=== PATIENT | male | born 1995 | race Caucasian/White ===

== ENCOUNTER 2019-12-16 11:44 | Emergency (ER) | payer SELFPAY ==
[2019-12-16 12:05] VITALS: BP 128/82; PULSE 79; RESP 18; TEMP 36.8; O2SAT 97; BMI 25.1
[2019-12-16 13:05] VITALS: BP 125/86; PULSE 77; RESP 18; O2SAT 97
--- NOTE | 2019-12-16 15:11 | W.ED.ALLEREA ---
HPI - Allergic Reaction General: Chief complaint: Allergic Reaction Stated complaint: Heart rate is high Time Seen by Provider: 12/16/19 12:24 Source: patient Mode of arrival: ambulatory Limitations: no limitations History of Present Illness: HPI narrative: Patient is a 24-year-old male who presents to ED today with complaints of a rash/possible allergic reaction. Patient states he was hiking yesterday and while hiking began feeling itchy. He began noticing the rash to his trunk when he returned. Patient has been treating with Benadryl that seemed to alleviate the pruritus and fade the rash. He has no other complaints currently. MD complaint: allergic reaction Onset (ago): hour(s) Exposure: unknown Associated symptoms: Reports no associated symptoms; Deny abdominal pain, nausea or vomiting Treatment prior to arrival: benadryl Previous Allergic Reaction History: none Review of Systems Const: Denies: fever, chills, body aches, fatigue or malaise Eyes: Denies: change in vision or blurry vision ENMT: Denies: throat pain, enlarged tonsils or painful swallowing Card: Denies: chest pain, palpitations or lightheadedness Resp: Denies: shortness of breath, productive cough or chest congestion GI: Denies: abdominal pain, nausea, vomiting or diarrhea Musc: Denies: neck pain or back pain Skin/Breast: Reports: rash and itching Neuro: Denies: headache, numbness in extremities, weakness in extremities or changes in sensation PFSH ED PFSH: Statuses (acute, chronic, etc) shown below reflect problem list status as previously entered and may not be historically accurate Social History Smoking and tobacco status: current every day smoker Physical Exam Const: COMMON NORMALS: no apparent distress, average body habitus, oriented x3, no limitations, healthy appearing, alert and well nourished HENMT: COMMON NORMALS: normocephalic, head/scalp atraumatic, external ears normal, EAC's normal, TM's normal bilaterally, external nose normal, nasal mucous membranes and turbinates normal, moist oral mucous membranes and oropharynx normal HEAD & SCALP: normocephalic and atraumatic NOSE: external nose normal and nasal mucous membranes and turbinates normal EXTERNAL EAR: Yes external ears normal EXTERNAL AUDITORY CANAL: EAC's normal TYMPANIC MEMBRANE: TM's normal bilaterally MOUTH: oral and palatal mucosa normal THROAT: posterior oropharynx normal, tonsils normal and uvula midline Eye: COMMON NORMALS: PERRL, EOMs intact bilaterally, conjunctivae normal and no scleral icterus CONJUNCTIVA: Yes conjunctivae normal PUPIL: Yes PERRL Neck/C-Spine: COMMON NORMALS: no lymphadenopathy and no meningeal signs Resp: COMMON NORMALS: normal respiratory effort and clear to auscultation bilaterally AUSCULTATION: clear to auscultation bilaterally Cardio: COMMON NORMALS: regular rate and regular rhythm RATE: regular rate RHYTHM: regular rhythm Extremity: COMMON NORMALS: normal to inspection Neuro: COMMON NORMALS: oriented x3 SENSORIUM/ORIENTATION: Yes alert MENINGEAL SIGNS: Yes no meningeal signs Skin: RASHES: rashes noted (pt has mildly erythematous papular rash mainly to trunk) Course Vital Signs: Vital signs: Vital Signs Temperature 98.2 F 12/16/19 12:05 Pulse Rate 77 12/16/19 13:05 Respiratory Rate 18 12/16/19 13:05 Blood Pressure 125/86 12/16/19 13:05 Pulse Oximetry 97 12/16/19 13:05 MDM - Allergic Reaction MDM Narrative: Medical decision making narrative: Rash does not appear as urticaria. Distribution is mainly just affecting the trunk. Overall does not appear characteristically like an allergic reaction however rash appears to be responding well to Benadryl and he does have positive exposure based on his history of hiking. Patient reports receiving all of his childhood vaccinations. He was vaccinated against varicella. No meningeal signs. He has no systemic symptoms/involvement. At this point he will be treated for an allergic reaction and recommend he follow-up with PCP in 3 to 5 days for a non-improving or worsening rash. Return to ED precautions given. Discharge Plan Discharge Patient Disposition: Home, Self-Care Clinical Impression: Allergic reaction Qualifiers: Encounter type: initial encounter Qualified Code(s): T78.40XA - Allergy, unspecified, initial encounter Condition: Stable Prescriptions: New prednisone 10 mg tablet 10 mg PO DAILY Qty: 21 RF: 0 Discharge Orders: Discharge Order (Routine); Ordered 12/16/19 Ordered By: Viv Castañeda Referrals: Alex Ching DO [Primary Care Provider] - Discharge Diet: Usual diet Discharge Activity: Increase activity as tolerated Activity Restrictions/Additional Instructions: Follow-up with primary care in 2 to 3 days if rash persists. Return to the emergency department for any other symptoms such as feeling ill, lethargy, confusion, neck pain or headache, or fevers greater than 100.4. Discharge Date/Time: 12/16/19 13:10 Coding Level of Care Code ED [employer] for Marlyn Martinez
== END 2019-12-16 13:10 | disposition home or self-care (01) ==
PROVIDERS: Emergency Provider Physician Assistant; PCP Internal Medicine
DX: T78.40XA Allergy, unspecified, initial encounter (principal); F17.200 Nicotine dependence, unspecified, uncomplicated
CPT/HCPCS: 96372; 96375; 99281; 99283; J2930

== ENCOUNTER 2020-04-27 22:42 | Emergency (ER) | payer SELFPAY ==
[2020-04-27 22:53] VITALS: BP 146/78; PULSE 77; RESP 18; TEMP 36.3; O2SAT 98; BMI 23.6
--- NOTE | 2020-04-27 23:07 | XRR_ITS ---
PROCEDURE INFORMATION: Exam: XR Right Hand Exam date and time: 04/27/2020 11:47 PM Age: 24 years old Clinical indication: Injury or trauma; Injury history: Laceration, cut with knife between 1st and 2nd digit; Initial encounter; Hand; Right; Additional info: Trauma/laceration TECHNIQUE: Imaging protocol: XR Right hand. Views: 3 or more views. COMPARISON: CR Hand 3 views, RIGHT* [id number] 09/04/2016 10:57 PM FINDINGS: Bones/joints: No acute bony injury or malalignment. Soft tissues: Subcutaneous emphysema in the thenar eminence. XR/XR hand RT min 3V* [id number] IMPRESSION: Subcutaneous emphysema in the thenar eminence.
--- NOTE | 2020-04-27 23:08 | W.ED.WOUNDLC ---
HPI - Wound/Laceration General: Chief Complaint: Wound/Laceration Stated Complaint: right hand lac Time Seen by Provider: 04/27/20 23:03 Source: patient Mode of arrival: ambulatory Limitations: no limitations History of Present Illness: HPI narrative: Patient is a 24-year-old male who presents to ED today with complaints of a laceration to his right hand that he sustained with a knife while he was cutting chicken. Patient states he is UTD on his tetanus. Patient does not complain of numbness/tingling/changes in sensation to his hand or digits. Onset (ago): hour(s) Extremity Location: Right: hand Place: home Patient tetanus UTD: Yes Context: accidental Associated symptoms: Reports no associated symptoms Review of Systems Musc: Reports: extremity pain (R hand pain) Skin/Breast: Reports: other (laceration) Neuro: Denies: numbness in extremities or sensory changes COUNTS INCLUDE 234 BEDS AT THE [facility] ED PFSH: Social History Smoking and tobacco status: current every day smoker Physical Exam Const: COMMON NORMALS: no acute distress, average body habitus, patient oriented x3, no limitations, healthy appearing, alert and well nourished Extremity: GENERAL: Yes normal exam except as noted OTHER: 1.25cm laceration to webbing of 1-2 digits of R hand; no bleeding; pt maintains full ROM of digits against resistance; cap refill/pulses normal Neuro: COMMON NORMALS: patient oriented x3, moves all extremities, no focal motor deficits and no sensory deficits noted SENSORIUM/ORIENTATION: Yes alert Skin: OTHER: see extremity assessment Procedures Laceration Laceration 1: Site: hand Side (If applicable): right Size (cm): 1.5 Description: linear Depth: simple, single layer Local Anesthetic: lidocaine 1% and with epi Amount of anesthesia used (mL): 2.0 Pre-repair: wound explored and irrigated extensively Skin layer closed with: nylon Size (cm): 4-0 Number of sutures: 3 Technique: simple, interrupted Course Vital Signs: Vital signs: Vital Signs Temperature 97.4 F L 04/27/20 22:53 Pulse Rate 77 04/27/20 22:53 Respiratory Rate 18 04/27/20 22:53 Blood Pressure 146/78 04/27/20 22:53 Pulse Oximetry 98 04/27/20 22:53 MDM - Wound/Laceration Imaging Data^: R hand XR: My impression: soft tissue injury to webbing of 1-2 digits; no bony involvement, no fbs Discharge Plan Discharge Patient Disposition: Home, Self-Care Clinical Impression: Laceration of right hand Qualifiers: Encounter type: initial encounter Foreign body presence: without foreign body Qualified Code(s): S61.411A - Laceration without foreign body of right hand, initial encounter Condition: Stable Prescriptions: No Action prednisone 10 mg tablet 10 mg PO DAILY Qty: 21 RF: 0 Discharge Orders: Discharge Order (Routine); Ordered 04/27/20 Ordered By: Viv Castañeda Patient Instructions: Suture Care (ED), Laceration (ED) Activity Restrictions/Additional Instructions: Keep wound clean with warm soap and water several times daily. Sutures need to be cut out in 7 days. Monitor for signs of infection such as redness, swelling, drainage, increased pain. Coding Level of Care Code ED Physician President for Marlyn Fwson Exam Expanded Problem Focused
[2020-04-28 00:06] VITALS: BP 142/87; PULSE 98; RESP 16; O2SAT 97
== END 2020-04-28 00:07 | disposition home or self-care (01) ==
PROVIDERS: Emergency Provider Physician Assistant
DX: S61.411A Laceration without foreign body of right hand, initial encounter (principal); W26.0XXA Contact with knife, initial encounter; F17.210 Nicotine dependence, cigarettes, uncomplicated
CPT/HCPCS: 12001; 12345; 73130; 99281; 99283; J2001

== ENCOUNTER 2020-07-24 11:07 | Emergency (ER) | payer SELFPAY ==
[2020-07-24 11:15] VITALS: BP 129/80; PULSE 93; RESP 16; TEMP 36.8; O2SAT 98; BMI 25.1
[2020-07-24 11:19] VITALS: PULSE 86; RESP 16; O2SAT 97
--- NOTE | 2020-07-24 11:28 | XRR_ITS ---
PROCEDURE INFORMATION: Exam: XR Chest, 1 View Exam date and time: 07/24/2020 11:30 AM Age: 24 years old Clinical indication: Shortness of breath and other: Dizzy; Additional info: Dizziness/palpitations TECHNIQUE: Imaging protocol: XR of the chest Views: 1 view. COMPARISON: No relevant prior studies available. FINDINGS: Lungs: Unremarkable. No consolidation. Pleural space: Unremarkable. No pleural effusion. No pneumothorax. Heart/Mediastinum: Unremarkable. No cardiomegaly. Bones/joints: Mild levoscoliosis. XR/XR chest 1V portable [id number] IMPRESSION: No acute findings.
--- NOTE | 2020-07-24 11:29 | ECG_ITS ---
[facility] Test Date: 2020-07-24 Pat Name: Dre Mistry Department: Room: Gender: Male [employer]: : 1995 Requested By: Suze Serna Order Number: [id number] Muhammad MD: Joce Garner M.D. Measurements Intervals [place] Rate: 76 P: 40 WI: 135 QRS: 58 QRSD: 104 T: 40 QT: 354 QTc: 399 Interpretive Statements SINUS RHYTHM No previous ECG available for comparison Electronically Signed On 07-25-2020 19:15:03 CDT by Joce Garner M.D. [id number]
--- NOTE | 2020-07-24 11:30 | ED_ITS ---
HPI - Dizziness General: Chief Complaint: Dizziness Stated Complaint: NAUSEOUS/DIZZY OVERNIGHT Time Seen by Provider: 07/24/20 11:23 Source: patient Mode of arrival: ambulatory Limitations: no limitations History of Present Illness: HPI Narrative: Dre is a 24-year-old male who comes in complaining of dizziness, palpitations feeling out of it . Patient states he was on a hike yesterday and hurt his knee. His girlfriend gave him a hydrocodone tablet which helped and then he went home later that night and drank alcohol. This likely he was smoking marijuana as well. Patient states he woke up at 2 AM feeling like he was having a panic attack. It lasted for quite some time until he is able to calm down. He felt lightheaded, felt like his heart was racing and like he was out of my body . He denied any chest pain, abdominal pain, headache, shortness of breath or other complaint. He denies any fever. He states after getting back to sleep this morning he feels better except for he still feels out of it . Patient denies any similar symptoms in the past. He is unaware of anything that made his symptoms better or worse at the time. The patient came in this morning because he feels like he needs to get checked out for what happened during the night. Associated symptoms: Reports nausea and palpitations; Denies change in hearing, chest pain, chills, diaphoresis, ear discharge, headache(s), malaise, syncope or vomiting Associated neuro symptoms: Deny numbness in extremities Review of Systems Const: Denies: fever(s), chills, body aches, fatigue, malaise or diaphoresis Eyes: Denies: change in vision, blurry vision, photophobia, eye discomfort, eye discharge, eye redness or yellow eyes ENMT: Denies: throat pain, odynophagia, hoarseness, swelling of lips/tongue, ear or mastoid pain, ear discharge, change in hearing or nasal discharge Card: Reports: palpitations; Denies: chest pain, irregular heart rhythm, edema, lightheadedness, syncope, pre-syncope, dyspnea on exertion or orthopnea Resp: Denies: dyspnea, productive cough, non-productive cough, wheezing, hemoptysis or chest congestion GI: Reports: nausea; Denies: abdominal pain, vomiting, hematemesis, coffee ground emesis, heartburn, diarrhea, constipation, GI cramping, hematochezia or melena : Denies: flank pain, dysuria, urinary frequency, urinary urgency or hematuria Musc: Denies: neck pain, back pain, extremity pain, extremity swelling, joint pain, joint swelling, joint redness, joint warmth or joint stiffness Skin/Breast: Denies: rash, pruritus, erythema, skin pain or skin tenderness Neuro: Reports: dizziness; Denies: headache(s), numbness in extremities, weakness in extremities, sensory changes, lack of coordination, difficulty walking, vertigo, Slurred speech present or seizure-like activity Wilmer/Lymph: Denies: easy bruising, easy bleeding, petechiae, purpura or enlarged lymph nodes All/Imm: Denies: urticaria, throat swelling, tongue swelling, facial swelling or acute wheezing PFSH ED PFSH: Medical History (Updated 07/24/20 @ 13:10 by Suze Ambriz) No pertinent past medical history Surgical History (Updated 07/24/20 @ 11:33 by Suze Ambriz) No pertinent past surgical history Family History (Updated 07/24/20 @ 11:34 by Suze Ambriz) Other Diabetes Seizures Social History (Updated 07/24/20 @ 11:34 by Suze Ambriz) Smoking and tobacco status: current every day smoker Alcohol intake: current Substance/Drug Use: current Substance/Drug use type: Marijuana Physical Exam Const: COMMON NORMALS: no acute distress, patient oriented x3, no limitations and alert GENERAL APPEARANCE: cooperative HENMT: COMMON NORMALS: normocephalic, atraumatic, external ears normal, EAC's normal and Normal external nose present HEAD & SCALP: normal to inspection, normocephalic and atraumatic FACE & SINUS: normal facial exam and face symmetric NOSE: Normal external nose present and Normal nares present EXTERNAL EAR: Yes external ears normal EXTERNAL AUDITORY CANAL: EAC's normal MOUTH: Normal oral and palatal mucosa present, lip normal and tongue normal Eye: COMMON NORMALS: Equal, round and reactive pupils present and conjunctivae normal GENERAL EYE: appearance normal, both eyes and all related structures ALIGNMENT: Yes alignment normal PERIORBITAL: periorbital findings normal EYELID: eyelids normal CONJUNCTIVA: Yes conjunctivae normal SCLERA: sclerae normal PUPIL: Yes Equal, round and reactive pupils present Neck/C-Spine: COMMON NORMALS: full ROM, no lymphadenopathy, supple, no meningeal signs and no JVD GENERAL: Yes normal visual inspection and Yes trachea midline Chest: COMMONS NORMALS: normal inspection of the chest and normal palpation of entire chest wall Resp: COMMON NORMALS: normal respiratory effort, No retractions, No use of accessory muscles and clear to auscultation bilaterally EFFORT & INSPECTION: Yes able to speak in complete sentences and Yes symmetric chest movement AUSCULTATION: clear to auscultation bilaterally, no crackles, no rales, no rhonchi and no wheezes Cardio: COMMON NORMALS: no JVD, regular rate, regular rhythm, S1 normal heart sound present and S2 normal heart sound present RATE: regular rate RHYTHM: regular rhythm HEART SOUNDS: S1 normal heart sound present, S2 normal heart sound present, no click, no gallops, no murmurs and no rubs GI: COMMON NORMALS: Soft to palpation and No hepatosplenomegaly present PALPATION: Yes Soft to palpation, No Tenderness to palpation present (GI), No Guarding due to palpation present (GI), No Rigid due to palpation, Yes No hepatosplenomegaly present, No Hernia present, No Palpable mass present and No Pulsatile mass present : COMMON NORMALS: Yes no CVA tenderness BLADDER/KIDNEY EXAM: Yes no CVA tenderness Back/Pelvis: COMMON NORMALS: no CVA tenderness, thoracic and lumbar spine normal to inspection, no thoracic nor lumbar tenderness and thoraco-lumbar ROM normal Extremity: COMMON NORMALS: normal to inspection, full ROM, capillary refill normal, no joint enlargement, no clubbing, cyanosis or edema and no calf te nderness Neuro: COMMON NORMALS: patient oriented x3, CN's II-XII intact bilaterally, moves all extremities, no focal motor deficits and no sensory deficits noted SENSORIUM/ORIENTATION: Yes alert MENINGEAL SIGNS: Yes no meningeal signs SPEECH: speech normal Psych: COMMON NORMALS: mental status grossly normal, Normal thought process present, cooperative, normal affect, speech normal and activity/motor behavior normal SPEECH: Yes normal speech THOUGHT PROCESS: Normal thought process present Skin: COMMON NORMALS: no rashes or lesions noted, turgor normal, no jaundice, no petechiae and no mottling GENERAL SKIN EXAM: no rashes or lesions noted and turgor normal Course Vital Signs: Vital signs: Vital Signs Temperature 98.2 F 09/20/20 11:15 Pulse Rate 77 07/24/20 11:56 Respiratory Rate 16 07/24/20 11:56 Blood Pressure 129/80 07/24/20 11:15 Pulse Oximetry 97 07/24/20 11:56 MDM - Dizziness MDM Narrative: Medical decision making narrative: Dre is a nice 24-year-old male who comes in with complaints of dizziness and not feeling good and feeling off that woke him up in the night. He states he had palpitations and felt lightheaded but he continues to state that he just felt off . All of his symptoms of past but today he still feels lightheaded and off . This time I see no evidence of arrhythmia or sign of Rdtmp-Wiuajtxpk-Ontiz, Brugada syndrome or significant arrhythmia on EKG. His lab work is unremarkable. History suggest that the patient mixed alcohol with hydrocodone last night which he is never done before. Advised him this may be a cause for his symptoms. As he is feeling back to normal now and his laboratory work-up is normal he wants to go home. He states is feeling better and he no longer feels off and is normal. He agrees to follow-up with his regular doctor or return here if his symptoms change or worsen. Lab Data: Labs: Lab Results 07/24/20 07/24/20 07/24/20 Range/Units 11:50 11:50 12:00 WBC 8.2 (4.0-10.0) 10^3/ uL RBC 4.87 (4.1-5.3) 10^6/u L Hgb 15.5 (11.7-16.6) g/dL Hct 46.1 (42.0-52.0) % MCV 94.7 H (80-94) fL MCH 31.8 (28.0-34.0) pg MCHC 33.6 (30.0-36.0) g/dL RDW 11.9 L (12.1-15.1) % Plt Count 258 (130-400) 10^3/c mm MPV 11.1 H (7.4-10.4) fL Neut % (Auto) 79.8 % Lymph % (Auto) 11.8 % [place] % (Auto) 6.7 % Eos % (Auto) 1.1 % Baso % (Auto) 0.2 % Neut # (Auto) 6.50 (1.8-7.7) 10^3/u L Lymph # (Auto) 1.0 (0.8-4.8) 10^3/u L [place] # (Auto) 0.6 (0.2-0.9) 10^3/u L Eos # (Auto) 0.1 (0.0-0.8) 10^3/u L Baso # (Auto) 0.0 (0.0-0.1) 10^3/u L Nucleated RBC % (a uto) 0 % Nucleated RBCs # 0.0 /100WBC Sodium 138 (136-145) mmol/L Potassium 4.0 (3.5-5.1) mmol/L Chloride 102 (98-107) mmol/L Carbon Dioxide 26 (22-29) mmol/L Anion Gap 14.0 (5-19) BUN 8 (6-20) mg/dL Creatinine 1.0 (0.7-1.2) mg/dL GFR Calculation 93.4 (90-130) mL/min Glucose 104 (65-115) mg/dL Calculated Osmolal ity 285 (285-295) mOsm/k g Calcium 9.4 (8.5-10.5) mg/dL Magnesium 2.0 (1.7-2.3) mg/dL Total Bilirubin 0.3 (0.15-1.2) mg/dL AST 19 (0-40) U/L ALT 16 (0-41) U/L Alkaline Phosphata se 120 (40-130) IU/L Creatine Kinase 106 (39-308) U/L Total Protein 7.2 (6.6-8.7) g/dL Albumin 4.7 (3.5-5.2) g/dL Globulin 2.5 (1.3-4.6) g/dL TSH 1.15 (0.27-4.20) uIU/ mL Urine Color Yellow (Yellow) Urine Appearance Clear (CLEAR) Urine pH 7 (5-7) Ur Specific Gravit y 1.005 (1.005-1.030) Urine Protein Neg (Negative) Urine Glucose (UA) Norm (Normal) Urine Ketones Negative (Negative) Urine Blood Neg (Negative) Urine Nitrate Negative (Negative) Urine Bilirubin Neg (Negative) Urine Urobilinogen Norm (Negative) mg/dL Ur Leukocyte Jolie ase Negative (Negative) Urine Opiates Scre en (Negative) ng/mL Ur Barbiturates Sc reen (Negative) ng/mL Ur Phencyclidine S crn (Negative) ng/mL Ur Amphetamines Sc reen (Negative) ng/mL U Benzodiazepines Scrn (Negative) ng/mL Urine Cocaine Scre en (Negative) ng/mL U Marijuana (THC) Screen (Negative) ng/mL Ethyl Alcohol < 10 (0-10) mg/dL 07/24/20 Range/Units 12:00 WBC (4.0-10.0) 10^3/ uL RBC (4.1-5.3) 10^6/u L Hgb (11.7-16.6) g/dL Hct (42.0-52.0) % MCV (80-94) fL MCH (28.0-34.0) pg MCHC (30.0-36.0) g/dL RDW (12.1-15.1) % Plt Count (130-400) 10^3/c mm MPV (7.4-10.4) fL Neut % (Auto) % Lymph % (Auto) % [place] % (Auto) % Eos % (Auto) % Baso % (Auto) % Neut # (Auto) (1.8-7.7) 10^3/u L Lymph # (Auto) (0.8-4.8) 10^3/u L [place] # (Auto) (0.2-0.9) 10^3/u L Eos # (Auto) (0.0-0.8) 10^3/u L Baso # (Auto) (0.0-0.1) 10^3/u L Nucleated RBC % (a uto) % Nucleated RBCs # /100WBC Sodium (136-145) mmol/L Potassium (3.5-5.1) mmol/L Chloride (98-107) mmol/L Carbon Dioxide (22-29) mmol/L Anion Gap (5-19) BUN (6-20) mg/dL Creatinine (0.7-1.2) mg/dL GFR Calculation (90-130) mL/min Glucose (65-115) mg/dL Calculated Osmolal ity (285-295) mOsm/k g Calcium (8.5-10.5) mg/dL Magnesium (1.7-2.3) mg/dL Total Bilirubin (0.15-1.2) mg/dL AST (0-40) U/L ALT (0-41) U/L Alkaline Phosphata se (40-130) IU/L Creatine Kinase (39-308) U/L Total Protein (6.6-8.7) g/dL Albumin (3.5-5.2) g/dL Globulin (1.3-4.6) g/dL TSH (0.27-4.20) uIU/ mL Urine Color (Yellow) Urine Appearance (CLEAR) Urine pH (5-7) Ur Specific Gravit y (1.005-1.030) Urine Protein (Negative) Urine Glucose (UA) (Normal) Urine Ketones (Negative) Urine Blood (Negative) Urine Nitrate (Negative) Urine Bilirubin (Negative) Urine Urobilinogen (Negative) mg/dL Ur Leukocyte Jolie ase (Negative) Urine Opiates Scre en Positive H (Negative) ng/mL Ur Barbiturates Sc reen Negative (Negative) ng/mL Ur Phencyclidine S crn Negative (Negative) ng/mL Ur Amphetamines Sc reen Negative (Negative) ng/mL U Benzodiazepines Scrn Negative (Negative) ng/mL Urine Cocaine Scre en Negative (Negative) ng/mL U Marijuana (THC) Screen Positive H (Negative) ng/mL Ethyl Alcohol (0-10) mg/dL EKG Data^: EKG 1: Attestation: I personally reviewed and interpreted this EKG as follows: EKG interpretation date: 07/24/20 EKG interpretation time: 12:00 Interpretation: Normal sinus rhythm at 76 beats a minute, normal axis, no blocks, normal intervals, no acute ST-T wave changes. Discharge Plan Discharge Patient Disposition: Home Clinical Impression: Dizziness Condition: Stable Prescriptions: No Action No Known Home Medications RF: 0 Discharge Orders: Discharge Order (Routine); Ordered 07/24/20 Ordered By: Suze Ambriz Referrals: Елена Shin DO [Physician] - 1-3 days Discharge Diet: Advance as tolerated Discharge Activity: Increase activity as tolerated Patient Instructions: Dizziness (ED) Activity Restrictions/Additional Instructions: Please return to the ER immediately for any of the signs or symptoms listed on your discharge instruction sheets, worsening/changing of your symptoms, you are not getting better as quickly as expected, or for ANY other cause or concerns. If your symptoms return or you develop any new symptoms please return to the ER immediately for recheck. Do not mix opiate medications with alcohol again. Be certain to follow-up with your doctor or establish with Dr. Shin for recheck for need of possible further evaluation and care. Coding Level of Care Code ED [employer] Systems Analyst for Chg Fwd Exam Comprehensive
[2020-07-24 11:56] VITALS: PULSE 77; RESP 16; O2SAT 97
[2020-07-24] MEDS: ondansetron 2 mg/ML SDV 2 mL 4 MG IVP (11:58)
[2020-07-24] MEDS: sodium chloride 0.9% 1,000 ML 999 ML IV (11:58)
[2020-07-24 12:12] LABS: Basophils % 0.2 %; Eosinophils # 0.1 10^3/uL (0.0-0.8); Eosinophils % 1.1 %; Hematocrit 46.1 % (42.0-52.0); Hemoglobin 15.5 g/dL (11.7-16.6); Lymphocytes % 11.8 %; Mean Corpuscular HGB Conc 33.6 g/dL (30.0-36.0); Mean Corpuscular Hemoglobin 31.8 pg (28.0-34.0); Mean Corpuscular Volume 94.7 fL (80-94); Mean Platelet Volume 11.1 fL (7.4-10.4); Monocytes # 0.6 10^3/uL (0.2-0.9); Monocytes % 6.7 %; Neutrophils % 79.8 %; Nucleated Red Blood Cells % 0 %; Platelet Count 258 10^3/cmm (130-400); Red Blood Count 4.87 10^6/uL (4.1-5.3); Red Cell Distribution Width 11.9 % (12.1-15.1); White Blood Count 8.2 10^3/uL (4.0-10.0)
[2020-07-24 12:27] LABS: Add Urine Microscopic? NO
[2020-07-24 12:36] LABS: Alanine Aminotransferase 16 U/L (0-41); Albumin Level 4.7 g/dL (3.5-5.2); Alkaline Phosphatase 120 IU/L (40-130); Aspartate Amino Transferase 19 U/L (0-40); Blood Urea Nitrogen 8 mg/dL (6-20); Calcium 9.4 mg/dL (8.5-10.5); Carbon Dioxide 26 mmol/L (22-29); Chloride 102 mmol/L (98-107); Creatine Phosphokinase 106 U/L (39-308); Globulin 2.5 g/dL (1.3-4.6); Glomerular Filtration Rate 93.4 mL/min (90-130); Glucose 104 mg/dL (65-115); Osmolality Calculated 285 mOsm/kg (285-295); Sodium 138 mmol/L (136-145); Thyroid Stimulating Hormone 1.15 uIU/mL (0.27-4.20); Total Bilirubin 0.3 mg/dL (0.15-1.2); Total Protein 7.2 g/dL (6.6-8.7)
[2020-07-24 12:38] LABS: Amphetamines Screen Urine Negative (Negative); Barbiturates Screen Urine Negative (Negative); Benzodiazepines Screen Urine Negative (Negative); Bilirubin Urine Neg (Negative); Blood Urine Neg (Negative); Cocaine Screen Urine Negative (Negative); Glucose Urine UA Norm (Normal); Ketones Urine Negative (Negative); Leukocyte Esterase Urine Negative (Negative); Nitrate Urine Negative (Negative); Opiate Screen Urine Positive (Negative); PCP Screen Urine Negative (Negative); Protein Urine Neg (Negative); Specific Gravity, Urine 1.005 (1.005-1.030); THC Screen Urine Positive (Negative); Urine Appearance Clear (CLEAR); Urine Color Yellow (Yellow); Urobilinogen Urine Norm (Negative); pH Urine 7 (5-7)
[2020-07-24 12:56] LABS: Alcohol Level < 10 mg/dL (0-10)
[2020-07-24 13:00] VITALS: BP 131/78; PULSE 71; RESP 16; O2SAT 96
== END 2020-07-24 13:21 | disposition home or self-care (01) ==
PROVIDERS: Emergency Provider Emergency Medicine
DX: R42 Dizziness and giddiness (principal); F17.210 Nicotine dependence, cigarettes, uncomplicated
CPT/HCPCS: 12345; 71045; 80053; 80306; 80307; 81003; 82550; 83735; 84443; 85025; 93005; 96360; 96375; 99284; J2405; J7030

== ENCOUNTER → 2020-08-07 16:43 | Outpatient (BNVA) | payer OTHER, SELFPAY | PROVIDERS: Visit Provider Nurse Practitioner Family | DX: Z11.59 Encounter for screening for other viral diseases (principal) | CPT/HCPCS: 87635 ==

== ENCOUNTER 2020-12-22 21:44 | Emergency (ER) | payer SELFPAY ==
[2020-12-22] VITALS (12 sets, daily range): BP systolic 126–163; BP diastolic 69–110; PULSE 91–136; RESP 18–22; TEMP 36.6; O2SAT 93–98; BMI 24.7
--- NOTE | 2020-12-22 22:07 | ED_ITS ---
HPI - Allergic Reaction General: Chief complaint: Allergic Reaction Stated complaint: allergic reaction Time Seen by Provider: 12/22/20 22:02 History of Present Illness: HPI narrative: Patient is a 25-year-old male who says 30 minutes ago he started noticing swelling of his tongue and lips. He chewed up 2 Benadryl from the store and it did not help so he came right to the ER. He says he is allergic to poison jose juan and tramadol but had no exposure to either of those tonight. No known exposures to significant allergens this evening. MD complaint: allergic reaction and facial swelling Onset (ago): minute(s) (30) Associated symptoms: Reports facial swelling; Deny abdominal pain or dizziness Review of Systems General: Reports: 10 or more systems reviewed and unremarkable except in HPI and below Const: Denies: fatigue Eyes: Denies: change in vision, blurry vision or eye redness ENMT: Denies: throat pain, swelling of lips/tongue, ear or mastoid pain or nasal congestion Card: Denies: chest pain, palpitations, irregular heart rhythm, edema, dyspnea on exertion or orthopnea Resp: Denies: dyspnea, productive cough or non-productive cough GI: Denies: abdominal pain, diarrhea or GI cramping : Denies: flank pain, urinary frequency or urinary urgency Musc: Denies: neck pain, back pain, extremity pain, joint pain, joint redness, limited range of motion or muscle weakness Skin/Breast: Denies: rash, pruritus, erythema, skin pain or skin tenderness Neuro: Denies: headache(s), numbness in extremities, weakness in extremities, sensory changes, difficulty walking, dizziness, confusion or Slurred speech present Psych: Denies: anxiety or depression Endo: Denies: polyuria All/Imm: Reports: facial swelling [facility] ED PFSH: Medical History (Updated 12/23/20 @ 00:19 by Cali Gallardo MD) No pertinent past medical history Surgical History (Updated 07/24/20 @ 11:33 by Suze Ambriz) No pertinent past surgical history Family History (Updated 07/24/20 @ 11:34 by Suze Ambriz) Other Diabetes Seizures Social History (Updated 08/07/20 @ 15:44 by Dary Olivera NP) Smoking and tobacco status: current every day smoker e-cigarettes E-Cigarette Details: vaporizer device Alcohol intake: current Physical Exam Const: COMMON NORMALS: no acute distress, average body habitus, patient oriented x3, no limitations, healthy appearing, alert and well nourished GENERAL APPEARANCE: cooperative, comfortable, well kempt and well developed ORIENTATION/CONSCIOUSNESS: Yes awake, Yes oriented to person, Yes oriented to place and Yes oriented to time HENMT: COMMON NORMALS: normocephalic, external ears normal and Normal external nose present HEAD & SCALP: normal to inspection and normocephalic NOSE: Normal external nose present EXTERNAL EAR: Yes external ears normal OTHER: Angioedema to the lips and tongue with slurred speech. After Benadryl, epi, administration he quickly improved and was able to speak clearly. He took a nap and requested to leave AMA. Eye: COMMON NORMALS: Equal, round and reactive pupils present and EOMs intact bilaterally GENERAL EYE: appearance normal, both eyes and all related structures PUPIL: Yes Equal, round and reactive pupils present Neck/C-Spine: COMMON NORMALS: full ROM, no lymphadenopathy, no meningeal signs and no JVD GENERAL: Yes normal visual inspection Lymph: LYMPHATIC: no lymphadenopathy noted Chest: COMMONS NORMALS: normal inspection of the chest and normal palpation of entire chest wall Resp: COMMON NORMALS: normal respiratory effort, No retractions, No use of accessory muscles, clear to auscultation bilaterally and percussion normal EFFORT & INSPECTION: Yes able to speak in complete sentences AUSCULTATION: clear to auscultation bilaterally PERCUSSION: percussion normal Cardio: COMMON NORMALS: no JVD, regular rate, regular rhythm, S1 normal heart sound present, S2 normal heart sound present and Peripheral pulses 2+ throughout RATE: regular rate RHYTHM: regular rhythm HEART SOUNDS: S1 normal heart sound present and S2 normal heart sound present PERIPHERAL PULSES: Peripheral pulses 2+ throughout GI: COMMON NORMALS: Normal to inspection, nondistended, normoactive bowel sounds present, Soft to palpation, non-tender and no masses INSPECTION: Yes normal to inspection PALPATION: Yes Soft to palpation : COMMON NORMALS: Yes no CVA tenderness BLADDER/KIDNEY EXAM: Yes no CVA tenderness Back/Pelvis: COMMON NORMALS: no CVA tenderness, thoracic and lumbar spine normal to inspection, no thoracic nor lumbar tenderness and thoraco-lumbar ROM normal Extremity: COMMON NORMALS: normal to inspection, full ROM, capillary refill normal, no joint enlargement and no pedal edema GENERAL: Yes normal exam except as noted Neuro: COMMON NORMALS: patient oriented x3, CN's II-XII intact bilaterally, moves all extremities, no focal motor deficits, no sensory deficits noted and gait normal SENSORIUM/ORIENTATION: Yes alert, Yes oriented to person, Yes oriented to place and Yes oriented to time MENINGEAL SIGNS: Yes no meningeal signs Psych: COMMON NORMALS: mental status grossly normal, Normal thought process present, cooperative, normal affect and speech normal APPEARANCE: Yes well kempt ATTITUDE: Yes calm SPEECH: Yes normal speech THOUGHT PROCESS: Normal thought process present Skin: COMMON NORMALS: no rashes or lesions noted GENERAL SKIN EXAM: no rashes or lesions noted Course Vital Signs: Vital signs: Vital Signs Temperature 97.9 F 12/22/20 21:55 Pulse Rate 95 12/23/20 00:30 Respiratory Rate 18 12/23/20 00:30 Blood Pressure 131/74 12/23/20 00:00 Pulse Oximetry 96 12/23/20 00:30 MDM - Allergic Reaction MDM Narrative: Medical decision making narrative: The patient came in with an acute angioedema allergic reaction to unknown trigger. He was given IV dexamethasone, Benadryl, famotidine. Also epinephrine intramuscular. His symptoms quickly improved and he took a nap. He requested to leave and I told him it was AGAINST MEDICAL ADVICE because angioedema is recommended to stay overnight for further monitoring. I told him his lips and tongue could swell back up and he could . He is alert and oriented x4 and understands those consequences and risks and signed AGAINST MEDICAL ADVICE and left on his own. I wrote him prescriptions for EpiPen, Medrol Dosepak, and Benadryl and recommended he take the EpiPen everywhere with him and use it with any lip and tongue swelling at all. Lab Data: Labs: Lab Results 12/22/20 12/22/20 Range/Units 22:09 22:09 WBC 9.6 (4.0-10.0) 10^3/ uL RBC 5.45 H (4.1-5.3) 10^6/u L Hgb 17.0 H (11.7-16.6) g/dL Hct 49.2 (42.0-52.0) % MCV 90.3 (80-94) fL MCH 31.2 (28.0-34.0) pg MCHC 34.6 (30.0-36.0) g/dL RDW 11.9 L (12.1-15.1) % Plt Count 332 (130-400) 10^3/c mm MPV 11.5 H (7.4-10.4) fL Neut % (Auto) 59.7 % Lymph % (Auto) 29.5 % Crawford % (Auto) 8.3 % Eos % (Auto) 1.5 % Baso % (Auto) 0.6 % Neut # (Auto) 5.73 (1.8-7.7) 10^3/u L Lymph # (Auto) 2.8 (0.8-4.8) 10^3/u L Crawford # (Auto) 0.8 (0.2-0.9) 10^3/u L Eos # (Auto) 0.1 (0.0-0.8) 10^3/u L Baso # (Auto) 0.1 (0.0-0.1) 10^3/u L Nucleated RBC % (a uto) 0 % Nucleated RBCs # 0.0 /100WBC Sodium 137 (136-145) mmol/L Potassium 3.8 (3.5-5.1) mmol/L Chloride 99 (98-107) mmol/L Carbon Dioxide 23 (22-29) mmol/L Anion Gap 18.8 (5-19) BUN 8 (6-20) mg/dL Creatinine 0.9 (0.7-1.2) mg/dL GFR Calculation 104.6 (90-130) mL/min Glucose 133 H (65-115) mg/dL Calculated Osmolal ity 284 L (285-295) mOsm/k g Calcium 9.5 (8.5-10.5) mg/dL Total Bilirubin 0.2 (0.15-1.2) mg/dL AST 19 (0-40) U/L ALT 19 (0-41) U/L Alkaline Phosphata se 139 H (40-130) IU/L Total Protein 7.4 (6.6-8.7) g/dL Albumin 4.8 (3.5-5.2) g/dL Globulin 2.6 (1.3-4.6) g/dL Discharge Plan Discharge Patient Disposition: Left Against Medical Advice Clinical Impression: Angioedema Condition: Stable Prescriptions: New Medrol (Jose Carlos) 4 mg tablets,dose pack See Rx Instructions .ROUTE .COMPLEX Qty: 21 RF: 0 EpiPen 2-Jose Carlos 0.3 mg/0.3 mL auto-injector 0.3 mg IM Q10M PRN (Reason: allergic reaction) Qty: 2 RF: 0 Benadryl 25 mg capsule 25 mg PO Q4H PRN (Reason: allergic reaction) Qty: 30 RF: 0 No Action No Known Home Medications RF: 0 Discharge Diet: Advance as tolerated Discharge Activity: Limit activity as instructed Patient Instructions: Angioedema (ED) Activity Restrictions/Additional Instructions: You have had an allergic reaction to a unknown trigger. A severe allergic reac tion on his angioedema. I have recommended you stay overnight for admission. You are choosing to leave AGAINST MEDICAL ADVICE. This is because the swelling can return and you can become short of breath and from it. Please return to the ER at any time for further evaluation. Take the steroids and Benadryl as directed. EpiPen please inject yourself if there is any swelling of your lips that returns. Follow-up with your primary care physician tomorrow if possible to monitor improvement of your symptoms. Please carry the EpiPen with you everywhere you go. Coding Level of Care Code ED Cardiovascular Radiologic Technologist for Marlyn Martinez Exam Comprehensive
[2020-12-22] MEDS: diphenhydrAMINE 50 mg/mL SDV 1mL IVP (22:11)
[2020-12-22] MEDS: dexamethasone 4 mg/mL INJ 10 MG IVP (22:11)
[2020-12-22] MEDS: EPINEPHrine 1 mg/mL INJ 0.3 MG IM (22:12)
[2020-12-22] MEDS: sodium chloride 0.9% 1,000 ML 999 ML IV (22:16)
[2020-12-22] MEDS: famotidine 20 mg/2 mL INJ 40 MG IVP (22:16)
[2020-12-22 23:33] LABS: Basophils # 0.1 10^3/uL (0.0-0.1); Basophils % 0.6 %; Eosinophils # 0.1 10^3/uL (0.0-0.8); Eosinophils % 1.5 %; Hematocrit 49.2 % (42.0-52.0); Lymphocytes # 2.8 10^3/uL (0.8-4.8); Lymphocytes % 29.5 %; Mean Corpuscular HGB Conc 34.6 g/dL (30.0-36.0); Mean Corpuscular Hemoglobin 31.2 pg (28.0-34.0); Mean Corpuscular Volume 90.3 fL (80-94); Mean Platelet Volume 11.5 fL (7.4-10.4); Monocytes # 0.8 10^3/uL (0.2-0.9); Monocytes % 8.3 %; Neutrophils # 5.73 10^3/uL (1.8-7.7); Neutrophils % 59.7 %; Nucleated Red Blood Cells % 0 %; Platelet Count 332 10^3/cmm (130-400); Red Blood Count 5.45 10^6/uL (4.1-5.3); Red Cell Distribution Width 11.9 % (12.1-15.1); White Blood Count 9.6 10^3/uL (4.0-10.0)
[2020-12-22 23:47] LABS: Alanine Aminotransferase 19 U/L (0-41); Albumin Level 4.8 g/dL (3.5-5.2); Alkaline Phosphatase 139 IU/L (40-130); Anion Gap 18.8 (5-19); Aspartate Amino Transferase 19 U/L (0-40); Blood Urea Nitrogen 8 mg/dL (6-20); Calcium 9.5 mg/dL (8.5-10.5); Carbon Dioxide 23 mmol/L (22-29); Chloride 99 mmol/L (98-107); Globulin 2.6 g/dL (1.3-4.6); Glomerular Filtration Rate 104.6 mL/min (90-130); Glucose 133 mg/dL (65-115); Osmolality Calculated 284 mOsm/kg (285-295); Potassium 3.8 mmol/L (3.5-5.1); Sodium 137 mmol/L (136-145); Total Bilirubin 0.2 mg/dL (0.15-1.2); Total Protein 7.4 g/dL (6.6-8.7)
[2020-12-23] VITALS: BP 131/74; PULSE 92; O2SAT 94
[2020-12-23 00:30] VITALS: PULSE 95; RESP 18; O2SAT 96
== END 2020-12-23 00:33 | disposition left against medical advice (07) ==
PROVIDERS: Emergency Provider Family Medicine
DX: T78.3XXA Angioneurotic edema, initial encounter (principal); Z53.21 Procedure and treatment not carried out due to patient leaving prior to being seen by health care provider; F17.290 Nicotine dependence, other tobacco product, uncomplicated
CPT/HCPCS: 80053; 85025; 96361; 96372; 96374; 96375; 99284; J0171; J1100; J1200; J3490; J7030

== ENCOUNTER 2022-01-02 04:22 | Emergency (ER) | payer SELFPAY ==
[2022-01-02 04:28] VITALS: BP 153/99; PULSE 122; RESP 18; TEMP 36.6; O2SAT 100; BMI 27.9
--- NOTE | 2022-01-02 04:28 | W.ED.ALLEREA ---
HPI - Allergic Reaction General: Chief complaint: Allergic Reaction Stated complaint: Allergic Reaction Time Seen by Provider: 01/02/22 04:23 Source: patient Mode of arrival: ambulatory Limitations: no limitations History of Present Illness: HPI narrative: 26-year-old male who states that he started having an urticarial rash to his lower abdomen and legs roughly 2 hours ago he states he drank He believes he may have been allergic to it. He states that his rash is very pruritic in nature denies any throat swelling denies any shortness of breath denies any worsening improving factors he did take Benadryl at home but states that he is still has urticaria and is quite pruritic. Associated symptoms: Deny abdominal pain, nausea or vomiting Review of Systems Const: Denies: fever(s), chills, body aches or change in appetite Eyes: Denies: blurry vision or eye discomfort ENMT: Denies: throat pain or dental pain Card: Denies: chest pain Resp: Denies: dyspnea GI: Denies: abdominal pain, nausea, vomiting or diarrhea : Denies: dysuria Musc: Denies: neck pain or back pain Skin/Breast: Reports: rash Neuro: Denies: headache(s) Psych: Denies: depression Wilmer/Lymph: Denies: easy bruising All/Imm: Denies: urticaria PFSH ED PFSH: Medical History No pertinent past medical history Surgical History No pertinent past surgical history Family History Other Diabetes Seizures Social History Smoking and tobacco status: current every day smoker e-cigarettes E-Cigarette Details: vaporizer device Alcohol intake: current Physical Exam Const: COMMON NORMALS: no acute distress, patient oriented x3 and healthy appearing HENMT: COMMON NORMALS: normocephalic and atraumatic HEAD & SCALP: normocephalic and atraumatic Eye: COMMON NORMALS: Equal, round and reactive pupils present and EOMs intact bilaterally PUPIL: Yes Equal, round and reactive pupils present Neck/C-Spine: COMMON NORMALS: full ROM and supple Chest: COMMONS NORMALS: normal inspection of the chest and normal palpation of entire chest wall Resp: COMMON NORMALS: normal respiratory effort, No retractions, No use of accessory muscles and clear to auscultation bilaterally AUSCULTATION: clear to auscultation bilaterally Cardio: COMMON NORMALS: regular rate, regular rhythm and No murmurs present (Cardio) RATE: regular rate RHYTHM: regular rhythm GI: COMMON NORMALS: Normal to inspection, nondistended, normoactive bowel sounds present, Soft to palpation, non-tender and no masses PALPATION: Yes Soft to palpation Extremity: COMMON NORMALS: normal to inspection and full ROM Neuro: COMMON NORMALS: patient oriented x3, moves all extremities and no focal motor deficits Psych: COMMON NORMALS: mental status grossly normal, Normal thought process present and cooperative THOUGHT PROCESS: Normal thought process present Skin: COMMON NORMALS: no wounds NARRATIVE SKIN EXAM: urticarial rash to lower abdomen and legs Course Vital Signs: Vital signs: Vital Signs Temperature 98 F 01/02/22 04:28 Pulse Rate 115 H 01/02/22 04:36 Respiratory Rate 21 H 01/02/22 04:36 Blood Pressure 153/99 01/02/22 04:36 Pulse Oximetry 100 01/02/22 04:36 MDM - Allergic Reaction Medical Decision Making Patient presents here with urticaria likely from allergic reaction he feels much improved here after IV meds. We will place him on 5 days of prednisone. He has no airway involvement he is stable for discharge is to follow-up PCP and return if worsening. Discharge Plan Discharge Patient Disposition: Home Clinical Impression: Allergic reaction, Urticaria Condition: Stable Prescriptions: New prednisone 50 mg tablet 50 mg PO DAILY Qty: 5 0RF No Action Medrol (Jose Carlos) 4 mg tablets,dose pack See Rx Instructions .ROUTE .COMPLEX Qty: 21 0RF Rx Instructions: orally per package directions EpiPen 2-Jose Carlos 0.3 mg/0.3 mL auto-injector 0.3 mg IM Q10M PRN (Reason: allergic reaction) Qty: 2 0RF Rx Instructions: for 2 doses Benadryl 25 mg capsule 25 mg PO Q4H PRN (Reason: allergic reaction) Qty: 30 0RF Discharge Orders: Discharge ED (Routine); Ordered 01/02/22 Ordered By: Shalom Rojas Discharge Diet: Advance as tolerated Discharge Activity: Resume usual activity Patient Instructions: Urticaria (ED) Coding Level of Care Code ED Board Certified Family Physician for Kristelg Fwd Exam Comprehensive
[2022-01-02 04:36] VITALS: BP 153/99; PULSE 115; RESP 21; O2SAT 100
[2022-01-02] MEDS: famotidine 20 mg/2 mL INJ 40 MG IVP (04:37)
[2022-01-02] MEDS: diphenhydrAMINE 50 mg/mL SDV 1mL IVP (04:37)
[2022-01-02 05:09] VITALS: BP 152/99; PULSE 110; RESP 18; O2SAT 99
== END 2022-01-02 05:12 | disposition home or self-care (01) ==
PROVIDERS: Emergency Provider Emergency Medicine
DX: L50.9 Urticaria, unspecified (principal); T78.40XA Allergy, unspecified, initial encounter; F17.290 Nicotine dependence, other tobacco product, uncomplicated
CPT/HCPCS: 96374; 96375; 99283; J1200; J2930; J3490

== ENCOUNTER 2023-01-07 22:44 | Inpatient (IN) | payer SELFPAY ==
[2023-01-07 22:47] VITALS: BP 144/99; PULSE 118; RESP 16; O2SAT 97; BMI 26.1
--- NOTE | 2023-01-07 22:50 | ECG_ITS ---
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 Measurements Intervals [place] Rate: 78 P: 53 [place]: 121 QRS: 65 QRSD: 93 T: 50 QT: 330 QTc: 376 Interpretive Statements SINUS RHYTHM WITH SINUS ARRHYTHMIA Compared to ECG 07/24/2020 11:49:39 No significant changes Electronically Signed On 01-08-2023 18:16:18 CLINIC OFFICE ASSISTANT by Valente Pride M.D. [id number] f
--- NOTE | 2023-01-07 23:08 | ED.C_ITS ---
HPI - Psych General: Chief Complaint: Psychiatric Symptoms Stated Complaint: SI Time Seen by Provider: 01/07/23 22:49 Source: patient, EMS and police Mode of arrival: EMS Limitations: no limitations History of Present Illness: 27-year-old male is here with police and EMS his anniversary of his mother is deaf he is stated he had been drinking and taking Xanax and also told the media marketing manager and his brother that he just wanted to end it all he did have a gun in his positions when media marketing manager arrived patient is tearful here and depressed he denies any suicidality me but he had made suicidal statements to multiple people. Associated symptoms: Reports depression and suicidal ideation Review of Systems Const: Denies: fever(s), chills, body aches or change in appetite Eyes: Denies: blurry vision or eye discomfort ENMT: Denies: throat pain or dental pain Card: Denies: chest pain Resp: Denies: dyspnea GI: Denies: abdominal pain, nausea, vomiting or diarrhea : Denies: dysuria Musc: Denies: neck pain or back pain Skin/Breast: Denies: rash Neuro: Denies: headache(s) Psych: Reports: depression and suicidal ideation Wilmer/Lymph: Denies: easy bruising All/Imm: Denies: urticaria PFSH ED PFSH: Medical History No pertinent past medical history Surgical History No pertinent past surgical history Family History Other Diabetes Seizures Social History Smoking and tobacco status: current every day smoker e-cigarettes E-Cigarette Details: vaporizer device Alcohol intake: current Physical Exam Const: COMMON NORMALS: no acute distress, patient oriented x3 and healthy appearing HENMT: COMMON NORMALS: normocephalic and atraumatic HEAD & SCALP: normoce phalic and atraumatic Eye: COMMON NORMALS: Equal, round and reactive pupils present and EOMs intact bilaterally PUPIL: Yes Equal, round and reactive pupils present Neck/C-Spine: COMMON NORMALS: full ROM and supple Chest: COMMONS NORMALS: normal inspection of the chest and normal palpation of entire chest wall Resp: COMMON NORMALS: normal respiratory effort, No retractions, No use of accessory muscles and clear to auscultation bilaterally AUSCULTATION: clear to auscultation bilaterally Cardio: COMMON NORMALS: regular rate, regular rhythm and No murmurs present (Cardio) RATE: regular rate RHYTHM: regular rhythm GI: COMMON NORMALS: Normal to inspection, nondistended, normoactive bowel sounds present, Soft to palpation, non-tender and no masses PALPATION: Yes Soft to palpation Extremity: COMMON NORMALS: normal to inspection and full ROM Neuro: COMMON NORMALS: patient oriented x3, moves all extremities and no focal motor deficits Psych: COMMON NORMALS: mental status grossly normal, Normal thought process present and cooperative MOOD & AFFECT: Yes sad and Yes tearful THOUGHT PROCESS: Normal thought process present Skin: COMMON NORMALS: no rashes or lesions noted and no wounds GENERAL SKIN EXAM: no rashes or lesions noted Course Vital Signs: Vital signs: Vital Signs Pulse Rate 78 01/08/23 00:36 Respiratory Rate 20 H 01/08/23 00:36 Blood Pressure 144/99 01/07/23 22:47 Pulse Oximetry 97 01/07/23 22:47 Oxygen Delivery Me thod 01/07/23 22:47 MDM - Psych Medical Decision Making Patient presents here with suicidal ideations he is placed on a 96-hour hold I spoke to psychiatrist Dr. Brown and will admit here Lab Data 01/07/23 23:41 01/07/23 23:41 Laboratory Results WBC 7.3 10^3/uL (4.0-10.0) 01/07/23 23:41 RBC 5.20 10^6/uL (4.1-5.3) 01/07/23 23:41 Hgb 17.1 g/dL (11.7-16.6) H 01/07/23 23:41 Hct 50.6 % (42.0-52.0) 01/07/23 23:41 MCV 97.3 fl (80-94) H 01/07/23 23:41 MCH 32.9 pg (28.0-34.0) 01/07/23 23:41 MCHC 33.8 g/dL (30.0-36.0) 01/07/23 23:41 RDW 12.1 % (12.1-15.1) 01/07/23 23:41 Plt Count 319 10^3/cmm (130-400) 01/07/23 23:41 MPV 11.3 fL (7.4-10.4) H 01/07/23 23:41 Neut % (Auto) 56.7 % 01/07/23 23:41 Lymph % (Auto) 29.9 % 01/07/23 23:41 Nance % (Auto) 7.9 % 01/07/23 23:41 Eos % (Auto) 4.4 % 01/07/23 23:41 Baso % (Auto) 0.8 % 01/07/23 23:41 Neut # (Auto) 4.12 10^3/uL (1.8-7.7) 01/07/23 23:41 Lymph # (Auto) 2.2 10^3/uL (0.8-4.8) 01/07/23 23:41 Nance # (Auto) 0.6 10^3/uL (0.2-0.9) 01/07/23 23:41 Eos # (Auto) 0.3 10^3/uL (0.0-0.8) 01/07/23 23:41 Baso # (Auto) 0.1 10^3/uL (0.0-0.1) 01/07/23 23:41 Nucleated RBC % (auto) 0 % 01/07/23 23:41 Nucleated RBCs # 0.0 /100WBC 01/07/23 23:41 Sodium 143 mmol/L (136-145) 01/07/23 23:41 Potassium 3.9 mmol/L (3.5-5.1) 01/07/23 23:41 Chloride 102 mmol/L (98-107) 01/07/23 23:41 Carbon Dioxide 28 mmol/L (22-29) 01/07/23 23:41 Anion Gap 16.9 (5-19) 01/07/23 23:41 BUN 5 mg/dL (6-20) L 01/07/23 23:41 Creatinine 1.0 mg/dL (0.7-1.2) 01/07/23 23:41 GFR Calculation 91.0 mL/min (90-130) 01/07/23 23:41 Glucose 126 mg/dL (65-115) H 01/07/23 23:41 Calculated Osmolality 295 mOsm/kg (285-295) 01/07/23 23:41 Calcium 10.0 mg/dL (8.5-10.5) 01/07/23 23:41 Total Bilirubin 0.3 mg/dL (0.15-1.2) 01/07/23 23:41 AST 65 U/L (0-40) H 01/07/23 23:41 ALT 89 U/L (0-41) H 01/07/23 23:41 Alkaline Phosphatase 128 U/L (40-130) 01/07/23 23:41 Total Protein 7.8 g/dL (6.6-8.7) 01/07/23 23:41 Albumin 5.0 g/dL (3.5-5.2) 01/07/23 23:41 Globulin 2.8 g/dL (1.3-4.6) 01/07/23 23:41 Salicylates < 0.3 mg/dL (3-10) L 01/07/23 23:41 Urine Opiates Screen Negative ng/mL (Negative) 01/07/23 23:18 Acetaminophen < 5.0 ug/mL (10-30) L 01/07/23 23:41 Ur Barbiturates Screen Negative ng/mL (Negative) 01/07/23 23:18 Ur Phencyclidine Scrn Negative ng/mL (Negative) 01/07/23 23:18 Ur Amphetamines Screen Negative ng/mL (Negative) 01/07/23 23:18 U Benzodiazepines Scrn Positive ng/mL (Negative) H 01/07/23 23:18 Urine Cocaine Screen Positive ng/mL (Negative) H 01/07/23 23:18 U Marijuana (THC) Screen Negative ng/mL (Negative) 01/07/23 23:18 Ethyl Alcohol 126 mg/dL (0-10) H 01/07/23 23:41 SARS-CoV-2 Ag (Rapid) negative (Negative) 01/08/23 00:20 EKG Data EKG 1: I personally reviewed and interpreted this EKG as follows: EKG interpretation date: 01/08/23 EKG interpretation time: 00:34 Interpretation: nsr hr [address] or t wave abnormalities qrs 93 qtc 363 Discharge Plan Discharge Patient Disposition: Admitted As Inpatient Clinical Impression: Suicidal ideation Condition: Stable Prescriptions: No Action Medrol (Jose Carlos) 4 mg tablets,dose pack See Rx Instructions .ROUTE .COMPLEX Qty: 21 0RF Rx Instructions: orally per package directions EpiPen 2-Jose Carlos 0.3 mg/0.3 mL auto-injector 0.3 mg IM Q10M PRN (Reason: allergic reaction) Qty: 2 0RF Rx Instructions: for 2 doses Benadryl 25 mg capsule 25 mg PO Q4H PRN (Reason: allergic reaction) Qty: 30 0RF prednisone 50 mg tablet 50 mg PO DAILY Qty: 5 0RF Coding Level of Care Code ED Major Assembly Inspector for Marlyn Martinez
--- NOTE | 2023-01-07 23:28 | PC.NURSE ---
rights of involuntary committment read to patient by bath house attendant and security
[2023-01-07 23:38] LABS: Amphetamines Screen Urine Negative (Negative); Barbiturates Screen Urine Negative (Negative); Benzodiazepines Screen Urine Positive (Negative); Cocaine Screen Urine Positive (Negative); Opiate Screen Urine Negative (Negative); PCP Screen Urine Negative (Negative); THC Screen Urine Negative (Negative)
[2023-01-08 00:14] LABS: Basophils # 0.1 10^3/uL (0.0-0.1); Basophils % 0.8 %; Eosinophils # 0.3 10^3/uL (0.0-0.8); Eosinophils % 4.4 %; Hematocrit 50.6 % (42.0-52.0); Hemoglobin 17.1 g/dL (11.7-16.6); Lymphocytes # 2.2 10^3/uL (0.8-4.8); Lymphocytes % 29.9 %; Mean Corpuscular HGB Conc 33.8 g/dL (30.0-36.0); Mean Corpuscular Hemoglobin 32.9 pg (28.0-34.0); Mean Corpuscular Volume 97.3 fl (80-94); Mean Platelet Volume 11.3 fL (7.4-10.4); Monocytes # 0.6 10^3/uL (0.2-0.9); Monocytes % 7.9 %; Neutrophils # 4.12 10^3/uL (1.8-7.7); Neutrophils % 56.7 %; Nucleated Red Blood Cells % 0 %; Platelet Count 319 10^3/cmm (130-400); Red Cell Distribution Width 12.1 % (12.1-15.1); White Blood Count 7.3 10^3/uL (4.0-10.0)
[2023-01-08 00:21] LABS: Alanine Aminotransferase 89 U/L (0-41); Alcohol Level 126 mg/dL (0-10); Alkaline Phosphatase 128 U/L (40-130); Anion Gap 16.9 (5-19); Aspartate Amino Transferase 65 U/L (0-40); Blood Urea Nitrogen 5 mg/dL (6-20); Carbon Dioxide 28 mmol/L (22-29); Chloride 102 mmol/L (98-107); Globulin 2.8 g/dL (1.3-4.6); Glucose 126 mg/dL (65-115); Osmolality Calculated 295 mOsm/kg (285-295); Potassium 3.9 mmol/L (3.5-5.1); Sodium 143 mmol/L (136-145); Total Bilirubin 0.3 mg/dL (0.15-1.2); Total Protein 7.8 g/dL (6.6-8.7)
[2023-01-08 00:28] LABS: Acetaminophen < 5.0 ug/mL (10-30); Salicylate < 0.3 mg/dL (3-10)
[2023-01-08 00:36] VITALS: PULSE 78; RESP 20
[2023-01-08 00:43] LABS: SARS Covid-2 Antigen negative (Negative)
[2023-01-08] MEDS: nicotine 21 mg Patch 1 PATCH TRANSDERMA ×2 (01:25→11:47)
--- NOTE | 2023-01-08 04:54 | PC.NURSE ---
Patient resting in bed with eyes closed. NAD noted. Chest rise and fall noted. Sitter at bedside. Suicide precautions maintained.
[2023-01-08 05:40] VITALS: BP 127/79; PULSE 78; RESP 16; O2SAT 98
[2023-01-08 14:00] VITALS: BP 132/93; PULSE 87; RESP 18; TEMP 37.1; O2SAT 100
[2023-01-08] MEDS: nicotine 2 mg Gum BUCCAL ×3 (15:29→22:06)
--- NOTE | 2023-01-08 16:46 | PC.NURSE ---
Patient states he was mourning the twenty-second anniversary of his mother's last night and relapsed. He admits to using cocaine and drinking alcohol before arriving at the hospital with his brother. Patient does say he made suicidal statements to his brother, but denies making suicidal statements to anyone else. Denies SI/HI at this time as well as AH/VH. He states he is very close with his brother and only feels comfortable talking to his brother about his mental state. Patient also says he is not feeling depressed at all anymore, but appears tearful at times. Calm and cooperative.
[2023-01-08 21:56] VITALS: BP 130/98; PULSE 96; RESP 16; TEMP 36.9; O2SAT 98
[2023-01-09 06:00] VITALS: RESP 18
--- NOTE | 2023-01-09 07:10 | P.NPUHP_ITS ---
Providers/Chief Complaint Admitting Physician: Quentin Brown MD Chief Complaint: SI HPI NPU History of Present Illness Dre Mistry is a 27 year old male who presented to the emergency department with the following report: Chief Complaint: Psychiatric Symptoms Stated Complaint: SI Time Seen by Provider: 01/07/23 22:49 Source: patient, EMS and police Mode of arrival: EMS Limitations: no limitations History of Present Illness: 27-year-old male is here with police and EMS his anniversary of his mother is deaf he is stated he had been drinking and taking Xanax and also told the emblem drawer in and his brother that he just wanted to end it all he did have a gun in his positions when emblem drawer in arrived patient is tearful here and depressed he denies any suicidality me but he had made suicidal statements to multiple people. Associated symptoms: Reports depression and suicidal ideation The patient was admitted to the neuropsychiatric unit for definitive treatment of those issues. They are not currently taking any psychiatric medications. They present to the psychiatric unit secondary to the anniversary of their mother?s on which they were 130 days sober and decided to have a drink but wound up getting drunk. They have been psychiatrically hospitalized once 4 to 5 years prior at [facility], has received outpatient services in the past but recently has mostly been going to , and has been on psychiatric medication in the past but could not recall the names. They report vaping currently and has for the past 6 to 7 years, was sober for 130 days but previously was having 6 to 8 drinks per day, marijuana occasionally, tried cocaine but denies any other illicit drug use. He denies any drug and alcohol rehab or drug and alcohol related charges. They report they do not remember the reason clearly of why they had been psychiatrically hospitalized 4 to 5 years ago but endorses it could pos sibly be due to a breakup at the time. They began recognizing their mental health issues a year ago but reports their mother noticed mental health issues in them which began around their teenage years. They report anxiety and depression during this time. Their father was in the and was constantly overseas and away which caused them a lot of anxiety with worrying about him. Their mother had passed from a drunk driver's license examiner when they were 4 years old. They were raised by their stepmother. They report they were working on staying clean and was doing what be could to keep themself off of it. They report when they had started drinking, their friends were worried that they were going to commit suicide and placed them on a hold. They deny any self-injurious behaviors, passive wish or suicidal ideation. They deny any suicide attempts. Psychiatric History: As above. Substance Abuse History: As above. Family History: They report mental health on their father?s side of the family, denies addiction issues on either side of the family and suicide attempts from their father. Developmental History: They denies any issues with their or , learned to walk and talk and met their developmental milestones on time and denies any need for speech therapy, learning support, emotional support or special education classes. Psychosocial History: They report their parents were together when they were born and split soon after. They have two sisters who are products of the same union. Their mother has no additional children and their father had no additional children. They described their childhood as good overall except for their father being gone. They denies any emotional, physical or sexual abuse. They deny CYS involvement. They denies any other traumatic events. The highest grade they achieved was 12th grade. They endorse being nonbinary. Their longest relationship is 5 years. They have never been , do not have children, has not been in the and denies a yazidism belief system. Their longest employment history is 3 years. They currently are employed. They currently live in an apartment by themself. Legal History: Denied. Medical History: They are allergic to Tramadol and Penicillin. They deny any medical issues. Meds NPU Home Medications Medication Instructions Recorded Confirmed Last Taken Type No Known Home Medications 01/08/23 01/08/23 Unknown History Allergies Allergy/AdvReac Type Severity Reaction Status Date / Time peanut Allergy ALGY-Hives Verified 01/08/23 07:47 Penicillins Allergy ALGY-Hives Verified 01/08/23 07:47 shellfish derived Allergy ALGY-Hives Verified 01/08/23 07:47 tramadol Allergy ALGY-Hives Verified 01/08/23 07:47 PFSH NPU PFSH: Medical History No pertinent past medical history Surgical History No pertinent past surgical history Family History Other Diabetes Seizures Social History Smoking and tobacco status: current every day smoker e-cigarettes E-Cigarette Details: vaporizer device Alcohol intake: current Mental Status Exam MSE Comments: This is a tall well-nourished well-developed white male in hospital scrubs with limited grooming and eye contact. Significant tattooing on his exposed skin. No abnormal movements except for mild psychomotor retardation. Cooperative with exam in mild distress. Speech was normal rate and volume. Mood described as good, affect is congruent. Thought process, organized. Thought content: patient denies suicidal or homicidal ideation, no delusions reported or noted and denies any auditory or visual hallucinations. Attention and concentration are intact and memory appeared reliable but none were formally tested. They are alert and oriented times three. Insight and judgement are fair, impulse control is limited. Vitals/I&O/Wt Last Vital Signs Temp 98.4 F 01/08/23 21:56 Pulse 96 01/08/23 21:56 Resp 18 01/09/23 06:00 BP 130/98 01/08/23 21:56 Pulse Ox 98 01/08/23 21:56 O2 Del Method 01/08/23 21:56 Weight last 48 hrs Weight 105.233 kg Data NPU 01/07/23 23:41 01/07/23 23:41 A&P Assessment and plan (1) Suicidal ideation: (2) Alcohol use disorder: (3) Depression: Plan This is a 27 year old non-binary person with a history of alcohol use, 130 days sobriety, parental loss and genetic loading for mental health and lethality issues who presents after the anniversary of their mother?s reporting they just got drunk but deny any other issues and wanting to get connected with therapeutic services. 1. Continue current medications 2. Encourage individual, group and milieu therapy 3. Continue q-15 minute check for safety 4. Recommend sober living treatment at the highest level of care to which the patient is willing to commit. Involuntary Hold Information 96 Hour Hold: 96 Hour Involuntary Admission: Yes 96 Hour Hold Ending Date: 01/11/23 96 Hour Hold Ending Time: 23:10 Attestations NPU Medical Necessity Statement*: Inpatient hospitalization is medically necessary and the clinically appropriate intervention at this time. We will monitor medications and make changes as indicated. Patient will be in the hospital for over two midnights. Likely length of stay is three to five days Coding Level of Care Code Acute Code for Chg Fwd Diagnoses Suicidal ideation R45.851 Alcohol use disorder F10.90 Depression F32.A
[2023-01-09] MEDS: nicotine 2 mg Gum BUCCAL ×8 (08:23→20:33)
[2023-01-09 14:00] VITALS: BP 131/93; PULSE 80; RESP 18; TEMP 36.8; O2SAT 96
[2023-01-09 21:07] VITALS: BP 123/75; PULSE 118; RESP 18; TEMP 36.5; O2SAT 97
[2023-01-10 06:00] VITALS: BP 136/83; PULSE 79; RESP 17; TEMP 36.4; O2SAT 99
[2023-01-10] MEDS: nicotine 2 mg Gum BUCCAL ×7 (10:22→21:23)
[2023-01-10 14:00] VITALS: BP 131/87; PULSE 89; RESP 18; TEMP 36.8; O2SAT 97
--- NOTE | 2023-01-10 15:39 | W.PM.NPUPNS ---
Subjective NPU Subjective: Patient presented today continuing to report that he is not wanting to initiate any medications but is fully invested in some outpatient therapeutic interventions. He is working with the social work team to get some services in place. He feels remorseful that he allowed his sobriety to a fall to the [place] but is optimistic about getting things back on track. Mental Status Exam MSE Comments: This is a tall well-nourished well-developed white male in hospital scrubs with limited grooming and eye contact. Significant tattooing on his exposed skin. No abnormal movements. Cooperative with exam in no acute distress. Speech was normal rate and volume. Mood described as good, affect is congruent. Thought process, organized. Thought content: patient denies suicidal or homicidal ideation, no delusions reported or noted and denies any auditory or visual hallucinations. Attention and concentration are intact and memory appeared reliable but none were formally tested. They are alert and oriented times three. Insight and judgement are fair, impulse control is limited, but improving. Vitals/I&O/Wt Last Vital Signs Temp 97.6 F 01/10/23 06:00 Pulse 79 01/10/23 06:00 Resp 17 01/10/23 06:00 BP 136/83 01/10/23 06:00 Pulse Ox 99 01/10/23 06:00 O2 Del Method 01/10/23 06:00 Data NPU 01/07/23 23:41 01/07/23 23:41 A&P Assessment and plan (1) Suicidal ideation: (2) Alcohol use disorder: (3) Depression: Plan This is a 27 year old non-binary person with a history of alcohol use, 130 days sobriety, parental loss and genetic loading for mental health and lethality issues who presents after the anniversary of their mother?s reporting they just got drunk but deny any other issues and wanting to get connected with therapeutic services. 1. Continue current medications 2. Encourage individual, group and milieu therapy 3. Continue q-15 minute check for safety 4. Recommend sober living treatment at the highest level of care to which the patient is willing to commit. Involuntary Hold Information 96 Hour Hold: 96 Hour Involuntary Admission: Yes 96 Hour Hold Ending Date: 01/11/23 96 Hour Hold Ending Time: 23:10 Attestations NPU Medical Necessity Statement*: Inpatient hospitalization is medically necessary and the clinically appropriate intervention at this time. We will monitor medications and make changes as indicated. Likely length of stay is 1-3 days Coding Level of Care Code Acute Code for Chg Fwd Diagnoses Suicidal ideation R45.851 Alcohol use disorder F10.90 Depression F32.A
[2023-01-10 19:58] VITALS: BP 132/88; PULSE 91; RESP 16; TEMP 36.7; O2SAT 98
[2023-01-10] MEDS: hyDROXYzine 25 mg Capsule 50 MG PO (21:21)
[2023-01-10] MEDS: trazodone 50 mg Tablet PO (23:07)
[2023-01-11 06:00] VITALS: BP 118/76; PULSE 57; RESP 16; TEMP 36.6; O2SAT 95
[2023-01-11] MEDS: nicotine 2 mg Gum BUCCAL ×2 (08:52→11:26)
--- NOTE | 2023-01-11 12:50 | W.PM.NPUDCS ---
Diagnoses at Discharge Discharge Diagnosis (1) Suicidal ideation: Status: Resolved (2) Alcohol use disorder: Status: Acute (3) Depression: Status: Acute Reason for Visit Reason for Visit: SI Brief History: History of Present Illness Dre Mistry is a 27 year old male who presented to the emergency department with the following report: Chief Complaint: Psychiatric Symptoms Stated Complaint: SI Time Seen by Provider: 01/07/23 22:49 Source: patient, EMS and police Mode of arrival: EMS Limitations: no limitations History of Present Illness: 27-year-old male is here with police and EMS his anniversary of his mother is deaf he is stated he had been drinking and taking Xanax and also told the currency examiner and his brother that he just wanted to end it all he did have a gun in his positions when currency examiner arrived patient is tearful here and depressed he denies any suicidality me but he had made suicidal statements to multiple people. Associated symptoms: Reports depression and suicidal ideation The patient was admitted to the neuropsychiatric unit for definitive treatment of those issues. They are not currently taking any psychiatric medications. They present to the psychiatric unit secondary to the anniversary of their mother?s on which they were 130 days sober and decided to have a drink but wound up getting drunk. They have been psychiatrically hospitalized once 4 to 5 years prior at [facility], has received outpatient services in the past but recently has mostly been going to , and has been on psychiatric medication in the past but could not recall the names. They report vaping currently and has for the past 6 to 7 years, was sober for 130 days but previously was having 6 to 8 drinks per day, marijuana occasionally, tried cocaine but denies any other illicit drug use. He denies any drug and alcohol rehab or drug and alcohol related charges. They report they do not remember the reason clearly of why they had been psychiatrically hospitalized 4 to 5 years ago but endorses it could possibly be due to a breakup at the time. They began recognizing their mental health issues a year ago but reports their mother noticed mental health issues in them which began around their teenage years. They report anxiety and depression during this time. Their father was in the and was constantly overseas and away which caused them a lot of anxiety with worrying about him. Their mother had passed from a drunk mobile lounge driver or operator when they were 4 years old. They were raised by their stepmother. They report they were working on staying clean and was doing what be could to keep themself off of it. They report when they had started drinking, their friends were worried that they were going to commit suicide and placed them on a hold. They deny any self-injurious behaviors, passive wish or suicidal ideation. They deny any suicide attempts. Psychiatric History: As above. Substance Abuse History: As above. Family History: They report mental health on their father?s side of the family, denies addiction issues on either side of the family and suicide attempts from their father. Developmental History: They denies any issues with their or , learned to walk and talk and met their developmental milestones on time and denies any need for speech therapy, learning support, emotional support or special education classes. Psychosocial History: They report their parents were together when they were born and split soon after. They have two sisters who are products of the same union. Their mother has no additional children and their father had no additional children. They described their childhood as good overall except for their father being gone. They denies any emotional, physical or sexual abuse. They deny CYS involvement. They denies any other traumatic events. The highest grade they achieved was 12th grade. They endorse being nonbinary. Their longest relationship is 5 years. They have never been , do not have children, has not been in the and denies a restoration belief system. Their longest employment history is 3 years. They currently are employed. They currently live in an apartment by themself. Legal History: Denied. Medical History: They are allergic to Tramadol and Penicillin. They deny any medical issues. Hospital Course Hospital Course He slowly acclimated to the individual, group and milieu therapies provided. He presented on a 96-hour hold with reports of intoxication. BAL was 126 his UDS was positive for cocaine and benzodiazepines. He was resistant to medication but open to appropriate follow-up. He had moderate improvement during the stay and worked with the social work team to get connected with outpatient resources. He was able to contract for safety, outside of the hospital prior to discharge. During the hospitalization he had routine laboratory studies which were within normal limits except for few outliers.? Additionally had a general medical evaluation which was also within normal limits and revealed no new acute processes. Discharge Summary At the time of discharge, he denied lethality and psychosis.? His mood and anxiety were well managed.? He endorsed a plan to avoid any drugs of abuse and follow-up with services outside of the hospital per the treatment team recommendations.? He was evaluated and deemed absent credible lethality and had received the maximum benefit from an inpatient hospitalization, so he was discharged. Involuntary Hold Information 96 Hour Hold: 96 Hour Involuntary Admission: Yes 96 Hour Hold Ending Date: 01/11/23 96 Hour Hold Ending Time: 23:10 Mental Status Exam MSE Comments: This is a tall well-nourished well-developed white male in hospital scrubs with limited grooming and eye contact. Significant tattooing on his exposed skin. No abnormal movements. Cooperative with exam in no acute distress. Speech was normal rate and volume. Mood described as good, affect is congruent. Thought process, organized. Thought content: patient denies suicidal or homicidal ideation, no delusions reported or noted and denies any auditory or visual hallucinations. Attention and concentration are intact and memory appeared reliable but none were formally tested. They are alert and oriented times three. Insight and judgement are fair, impulse control is limited, but improving. Discharge Data Studies Completed and Pending: Laboratory Results WBC 7.3 10^3/uL (4.0- 10.0) 01/07/23 23:41 RBC 5.20 10^6/uL (4.1 -5.3) 01/07/23 23:41 Hgb 17.1 g/dL (11.7-1 6.6) H 01/07/23 23:41 Hct 50.6 % (42.0-52.0 ) 01/07/23 23:41 MCV 97.3 fl (80-94) H 01/07/23 23:41 MCH 32.9 pg (28.0-34. 0) 01/07/23 23:41 MCHC 33.8 g/dL (30.0-3 6.0) 01/07/23 23:41 RDW 12.1 % (12.1-15.1 ) 01/07/23 23:41 Plt Count 319 10^3/cmm (130 -400) 01/07/23 23:41 MPV 11.3 fL (7.4-10.4 ) H 01/07/23 23:41 Neut % (Auto) 56.7 % 01/07/23 23:41 Lymph % (Auto) 29.9 % 01/07/23 23:41 [place] % (Auto) 7.9 % 01/07/23 23:41 Eos % (Auto) 4.4 % 01/07/23 23:41 Baso % (Auto) 0.8 % 01/07/23 23:41 Neut # (Auto) 4.12 10^3/uL (1.8 -7.7) 01/07/23 23:41 Lymph # (Auto) 2.2 10^3/uL (0.8- 4.8) 01/07/23 23:41 [place]vier # (Auto) 0.6 10^3/uL (0.2- 0.9) 01/07/23 23:41 Eos # (Auto) 0.3 10^3/uL (0.0- 0.8) 01/07/23 23:41 Baso # (Auto) 0.1 10^3/uL (0.0- 0.1) 01/07/23 23:41 Nucleated RBC % (a uto) 0 % 01/07/23 23:41 Nucleated RBCs # 0.0 /100WBC 01/07/23 23:41 Sodium 143 mmol/L (136-1 45) 01/07/23 23:41 Potassium 3.9 mmol/L (3.5-5 .1) 01/07/23 23:41 Chloride 102 mmol/L (98-10 7) 01/07/23 23:41 Carbon Dioxide 28 mmol/L (22-29) 01/07/23 23:41 Anion Gap 16.9 (5-19) 01/07/23 23:41 BUN 5 mg/dL (6-20) L 01/07/23 23:41 Creatinine 1.0 mg/dL (0.7-1. 2) 01/07/23 23:41 GFR Calculation 91.0 mL/min (90-1 30) 01/07/23 23:41 Glucose 126 mg/dL (65-115 ) H 01/07/23 23:41 Calculated Osmolal ity 295 mOsm/kg (285- 295) 01/07/23 23:41 Calcium 10.0 mg/dL (8.5-1 0.5) 01/07/23 23:41 Total Bilirubin 0.3 mg/dL (0.15-1 .2) 01/07/23 23:41 AST 65 U/L (0-40) H 01/07/23 23:41 ALT 89 U/L (0-41) H 01/07/23 23:41 Alkaline Phosphata se 128 U/L (40-130) 01/07/23 23:41 Total Protein 7.8 g/dL (6.6-8.7 ) 01/07/23 23:41 Albumin 5.0 g/dL (3.5-5.2 ) 01/07/23 23:41 Globulin 2.8 g/dL (1.3-4.6 ) 01/07/23 23:41 Salicylates < 0.3 mg/dL (3-10 ) L 01/07/23 23:41 Urine Opiates Scre en Negative ng/mL (N egative) 01/07/23 23:18 Acetaminophen < 5.0 ug/mL (10-3 0) L 01/07/23 23:41 Ur Barbiturates Sc reen Negative ng/mL (N egative) 01/07/23 23:18 Ur Phencyclidine S crn Negative ng/mL (N egative) 01/07/23 23:18 Ur Amphetamines Sc reen Negative ng/mL (N egative) 01/07/23 23:18 U Benzodiazepines Scrn Positive ng/mL (N egative) H 01/07/23 23:18 Urine Cocaine Scre en Positive ng/mL (N egative) H 01/07/23 23:18 U Marijuana (THC) Screen Negative ng/mL (N egative) 01/07/23 23:18 Ethyl Alcohol 126 mg/dL (0-10) H 01/07/23 23:41 SARS-CoV-2 Ag (Rap id) negative (Negati ve) 01/08/23 00:20 Vitals: Last Vital Signs Temp 97.8 F 01/11/23 06:00 Pulse 57 L 01/11/23 06:00 Resp 16 01/11/23 06:00 BP 118/76 01/11/23 06:00 Pulse Ox 95 01/11/23 06:00 O2 Del Method 01/10/23 14:00 Discharge Plan Discharge Patient Disposition: Home Condition: Stable Prescriptions: No Action No Known Home Medications Discharge Orders: Discharge Order (Routine); Ordered 01/11/23 Ordered By: Quentin Brown Referrals: AA meetings [Other] (SATURDAY 7:00 pm SATURDAY 7:00 PM SATURDAY 7:00 pm SATURDAY 7:00 pm SATURDAY @ NOON AND 7:00 pm ) [facility] [Outside] - 01/24/23 11:30 am (initial appointment scheduled for 01/24/23 @ 11:30 am. ) Discharge Diet: Regular Discharge Activity: Resume usual activity Patient Instructions: Alcohol Abuse, Depression (DC), Opioid Safety, Suicidal Ideation Discharge Attestations NPU Time Spent in Discharge Care*: less than 30 min Specific Discharge Activities: Specific discharge activities: educating patient, discussing with renal case manager/social workers/dc planners, documenting/other paperwork and evaluating patient/reviewing data Coding Level of Care Code Acute Chg FW DC note Diagnoses Suicidal ideation R45.851 Alcohol use disorder F10.90 Depression F32.A
[2023-01-11 13:06] VITALS: BP 118/76; PULSE 57; RESP 16; TEMP 36.6; O2SAT 95
== END 2023-01-11 13:17 | disposition home or self-care (01) | DRG 881 ==
LOC: ER 01-08 05:13 → ER IP 01-08 05:27 → NP 01-08 13:39
PROVIDERS: Admitting Provider Psychiatry & Neurology Psychiatry; Emergency Provider Emergency Medicine; Visit Provider Psychiatry & Neurology Psychiatry
DX: F32.A Depression, unspecified (principal); R45.851 Suicidal ideations; F10.10 Alcohol abuse, uncomplicated; Y90.6 Blood alcohol level of 120-199 mg/100 ml; F17.290 Nicotine dependence, other tobacco product, uncomplicated; Z63.4 Disappearance and death of family member; Z81.8 Family history of other mental and behavioral disorders
CPT/HCPCS: 80053; 80306; 80307; 85025; 87426; 93005; 97150; 97165; 99238; 99285

== ENCOUNTER 2024-08-19 17:25 | Emergency (ER) | payer SELFPAY ==
[2024-08-19 17:34] VITALS: BP 154/95; PULSE 96; RESP 22; TEMP 36.9; O2SAT 96; BMI 25.9
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
[2024-08-19] MEDS: LORazepam 2 mg/mL INJ 1 mL IVP (19:02)
[2024-08-19 19:04] LABS: Basophils % 0.4 %; Eosinophils # 0.1 10^3/uL (0.0-0.8); Eosinophils % 0.9 %; Hematocrit 48.5 % (37-53); Lymphocytes # 1.9 10^3/uL (0.8-4.8); Lymphocytes % 18.1 %; Mean Corpuscular Hemoglobin 32.7 pg (27-33); Mean Platelet Volume 10.2 fL (7.4-10.4); Monocytes # 0.9 10^3/uL (0.2-0.9); Monocytes % 9.1 %; Neutrophils # 7.36 10^3/uL (1.8-7.7); Nucleated Red Blood Cells % 0 %; Platelet Count 245 10^3/cmm (157-399); Red Blood Count 5.05 10^6/uL (3.85-5.65); Red Cell Distribution Width 11.9 % (12.1-15.1); White Blood Count 10.36 10^3/uL (3.29-11.43)
[2024-08-19] MEDS: nicardipine 20 MG/200 ML PREMIX 50 MG IV (19:07)
[2024-08-19 19:15] VITALS: BP 118/99; PULSE 98; RESP 17; O2SAT 97
[2024-08-19 19:20] VITALS: BP 153/92; PULSE 101; O2SAT 100
[2024-08-19 19:35] LABS: Alanine Aminotransferase 45 U/L (0-41); Alkaline Phosphatase 130 U/L (40-130); Anion Gap 16.1 (5-19); Aspartate Amino Transferase 30 U/L (0-40); Blood Urea Nitrogen 9 mg/dL (6-20); Calcium 9.7 mg/dL (8.5-10.5); Carbon Dioxide 26 mmol/L (22-29); Chloride 100 mmol/L (98-107); Creatinine Clr Calc Pharmacy 168.2964; Globulin 2.7 g/dL (1.3-4.6); Glucose 91 mg/dL (65-115); Osmolality Calculated 284 mOsm/kg (285-295); Potassium 4.1 mmol/L (3.5-5.1); Sodium 138 mmol/L (136-145); Total Bilirubin 0.5 mg/dL (0.15-1.2); Total Protein 7.7 g/dL (6.6-8.7)
[2024-08-19 19:42] VITALS: BP 140/99; PULSE 79; O2SAT 97
[2024-08-19 19:56] LABS: INR 0.85 (0.8-1.2)
== END 2024-08-19 19:50 | disposition short-term general hospital (02) ==
PROVIDERS: Emergency Provider Emergency Medicine
DX: S06.6XAA Traumatic subarachnoid hemorrhage with loss of consciousness status unknown, initial encounter (principal); S22.32XA Fracture of one rib, left side, initial encounter for closed fracture; V29.99XA Rider (driver) (passenger) of other motorcycle injured in unspecified traffic accident, initial encounter; F17.290 Nicotine dependence, other tobacco product, uncomplicated; S00.93XA Contusion of unspecified part of head, initial encounter
CPT/HCPCS: 70450; 71250; 72125; 80053; 85025; 85610; 96374; 96375; 99285; J2060

== ENCOUNTER 2025-02-09 02:51 | Emergency (ER) | payer SELFPAY ==
[2025-02-09 02:55] VITALS: BP 137/92; PULSE 90; RESP 18; TEMP 36.5; O2SAT 100; BMI 26.6
[2025-02-09] MEDS: dexamethasone 10 mg/mL INJ IM (03:10)
[2025-02-09] MEDS: famotidine 20 mg Tablet 40 MG PO (03:10)
--- NOTE | 2025-02-09 03:10 | W.ED.SKABFB ---
HPI - Skin/Abscess/Foreign Bdy General: Chief complaint: Skin/Abscess/Foreign Body Stated complaint: Rash Time Seen by Provider: 02/09/25 02:57 History of Present Illness: Patient presents to the ER with a rash on the outside of his right leg. He states it began at 1900 hrs. tonight. Patient took 2 Benadryl at 2100 hrs. Went to bed woke up and the rash was worse. Rash does itch. Patient has had the rash before but does not what causes it. Related Data Home Medications ?Medication ?Instructions ?Recorded ?Confirmed No Known Home Medications 01/08/23 01/08/23 Allergies Allergy/AdvReac Type Severity Reaction Status Date / Time peanut Allergy ALGY-Hives Verified 02/09/25 02:58 Penicillins Allergy ALGY-Hives Verified 02/09/25 02:58 shellfish derived Allergy ALGY-Hives Verified 02/09/25 02:58 tramadol Allergy ALGY-Hives Verified 02/09/25 02:58 Review of Systems General: Reports: 10 or more systems reviewed and unremarkable except in HPI and below PFSH ED PFSH: Medical History No pertinent past medical history Surgical History No pertinent past surgical history Family History Other Diabetes Seizures Social History Smoking and tobacco/nicotine status: current every day tobacco/nicotine user e-cigarettes E-Cigarette Details: vaporizer device Alcohol intake: current Substance/Drug Use: never Physical Exam Const: COMMON NORMALS: no acute distress, average body habitus, patient oriented x3, no limitations, healthy appearing, alert and well nourished HENMT: COMMON NORMALS: normocephalic, atraumatic, hearing grossly normal bilaterally, external ears normal, Normal external nose present, moist oral mucous membranes and oropharynx normal HEAD & SCALP: normocephalic and atraumatic NOSE: Normal external nose present EXTERNAL EAR: Yes external ears normal Neck/C-Spine: COMMON NORMALS: no JVD Chest: COMMONS NORMALS: normal inspection of the chest and normal palpation of entire chest wall Resp: COMMON NORMALS: normal respiratory effort, No retractions, No use of accessory muscles and clear to auscultation bilaterally AUSCULTATION: clear to auscultation bilaterally Cardio: COMMON NORMALS: no JVD, regular rate, regular rhythm, S1 normal heart sound present, S2 normal heart sound present, No gallops present (Cardio), No clicks present (Cardio), No murmurs present (Cardio) and No rub (Cardio) RATE: regular rate RHYTHM: regular rhythm HEART SOUNDS: S1 normal heart sound present and S2 normal heart sound present GI: COMMON NORMALS: Normal to inspection, nondistended, normoactive bowel sounds present, Soft to palpation, non-tender, No hepatosplenomegaly present and no masses PALPATION: Yes Soft to palpation and Yes No hepatosplenomegaly present Neuro: COMMON NORMALS: patient oriented x3 SENSORIUM/ORIENTATION: Yes alert Course Vital Signs: Vital signs: Vital Signs Temperature 97.7 F 02/09/25 02:55 Pulse Rate 100 02/09/25 03:57 Respiratory Rate 16 02/09/25 03:57 Blood Pressure 129/84 02/09/25 03:57 Pulse Oximetry 97 02/09/25 03:57 Oxygen Delivery Me thod Room Air 02/09/25 02:55 MDM - Skin/Abscess/Foreign Bdy Medicial Decision Making Patient was given 10 mg Decadron IM and 40 mg of Pepcid p.o. Patient will be discharged home. Medical Records I reviewed the patient's medical records. Lab Data I reviewed the patient's lab results. All radiology interpretation(s) finalized by discharge Discharge Plan Discharge Patient Disposition: Home Clinical Impression: Rash and nonspecific skin eruption Condition: Stable Prescriptions: No Action No Known Home Medications Discharge Orders: Discharge ED (Routine); Ordered 02/09/25 Ordered By: Raymundo Gregorio Patient Instructions: Rash - Nonspecific Activity Restrictions/Additional Instructions: In the ER you are given Pepcid and Decadron for your rash. Please continue to take [id number] Benadryl and Pepcid for the next 48 hours and then as needed. Thank you for choosing [facility] for your healthcare needs today. Please realize that you were seen in the emergency department and that we are providing you with an emergency medical screening exam and this may not be a complete and all exclusive of all testing and/or medical workup we may need to determine your element or severity of your illness. It is very important that you follow-up as instructed with your primary care provider or specialist for the additional evaluation and to discuss your medical treatment plan. You may return to the emergency department should you have concerns or if your condition changes or worsens in any way. Stand Alone Forms: Work/School Release Print Language: Swiss Coding Level of Care Code ED Box Inspector for Marlyn Martinez
[2025-02-09 03:57] VITALS: BP 129/84; PULSE 100; RESP 16; O2SAT 97
[2025-02-09 04:59] VITALS: RESP 18; O2SAT 99
== END 2025-02-09 05:00 | disposition home or self-care (01) ==
PROVIDERS: Emergency Provider Emergency Medicine
DX: R21 Rash and other nonspecific skin eruption (principal); F17.290 Nicotine dependence, other tobacco product, uncomplicated
CPT/HCPCS: 96372; 99284; J1100; J9999